=== PATIENT | male | born 1975 | race Caucasian/White ===

== ENCOUNTER 2016-06-03 19:44 | Emergency (ER) | payer MEDICARE, MEDICAID ==
[2016-06-03 21:09] VITALS: BP 125/69; PULSE 65; TEMP 98.4
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
== END 2016-06-03 22:06 | disposition home or self-care (01) ==
LOC: EDMC 19:44
DX: L03.311 Cellulitis of abdominal wall (principal)
CPT/HCPCS: 10120; 99282